=== PATIENT | female | born 1955 | race Caucasian/White ===

== ENCOUNTER 2023-02-06 23:19 | Inpatient (IN) | payer MEDICARE, OTHER ==
[~2023-02-06] VITALS: Ht 167.6 cm; Wt 61.7 kg
--- NOTE | 2023-02-06 23:25 | NUR ---
Pt is noted in bed alert, responsive as she came in C/O chest pain Radiating to Left Neck and Arm x1HR with indigestions. Pt care continue.
[2023-02-06] MEDS ORDERED: ASPIRIN 81 MG TAB.CHEW PO ONE (23:30)
[2023-02-06] MEDS ORDERED: NITROGLYCERIN 0.4 MG/TAB BOTTLE SL ONE (23:30)
[2023-02-06] MEDS ORDERED: ASPIRIN 81 MG TAB.CHEW ONE (23:32)
[2023-02-06] MEDS ORDERED: NITROGLYCERIN 0.4 MG/TAB BOTTLE ONE (23:32)
--- NOTE | 2023-02-06 23:35 | NUR ---
Pt noted off the unit to move her car. Pt care continue as awaits her returns back to the ER.
--- NOTE | 2023-02-06 23:43 | NUR ---
NURSE OUTREACH CASE MANAGER AT PT'S BEDSIDE
--- NOTE | 2023-02-06 23:46 | NUR ---
Pt is noted back on the unit with son by her side as ASA 324PO and Nitrostael 0.4sl given as ordered. Pt care continue.
--- NOTE | 2023-02-07 | NUR ---
EMT AT PT'S BEDSIDE FOR EKG
--- NOTE | 2023-02-07 00:02 | NUR ---
CALLED LAB FOR SPECIMEN PICKUP
[2023-02-07 00:20] LABS: BASOPHILS # (AUTO) 0.1 K/uL (0.0-0.2); EOSINOPHILS % (AUTO) 18.9 % (0.0-6.0); HEMATOCRIT 40 % (33-45); HEMOGLOBIN 13.5 g/dL (11.5-14.8); LYMPHOCYTES # (AUTO) 1.9 K/uL (0.8-4.8); LYMPHOCYTES % (AUTO) 38.7 % (20.0-44.0); MEAN CORPUSCULAR HGB CONC 33 g/dl (31.0-36.0); MEAN CORPUSCULAR VOLUME 97 fL (82-100); MONOCYTES # (AUTO) 0.3 K/uL (0.1-1.30); MONOCYTES % (AUTO) 5.8 % (2.0-12.0); NEUTROPHILS # (AUTO) 1.6 K/uL (1.8-8.9); NEUTROPHILS % (AUTO) 33.6 % (43.0-81.0); PLATELET COUNT (AUTO) 181 K/uL (150-450); RED BLOOD CELL COUNT(AUTO) 4.16 MIL/uL (4.0-5.2); WHITE BLOOD COUNT (AUTO) 4.9 K/uL (4.3-11.0)
[2023-02-07 00:40] LABS: CALCIUM, SERUM 8.9 mg/dL (8.5-10.1); CARBON DIOXIDE 29 mmol/L (21-32); CHLORIDE 107 mmol/L (98-107); CREATININE 1.1 mg/dL (0.6-1.3); GLUCOSE 104 mg/dL (74-106); POTASSIUM 3.9 mmol/L (3.5-5.1); SODIUM SERUM 143 mmol/L (136-145); UREA NITROGEN, BLOOD 15 mg/dL (7-18)
--- NOTE | 2023-02-07 01:12 | NUR ---
PT WALKED TO RESTROOM, NEEDS MET
[2023-02-07] MEDS ORDERED: ACETAMINOPHEN 325 MG TABLET PO PRN (01:30)
[2023-02-07] MEDS ORDERED: MORPHINE SULFATE INJ 2 MG/ML DISP.SYRIN IV PRN (01:30)
[2023-02-07] MEDS ORDERED: MAG HYDROX/AL HYDROX/SIMETH 30 ML UDC PO PRN (01:30)
[2023-02-07] MEDS ORDERED: Z GUARD REMEDY 4 OZ OINT TP PRN (01:30)
[2023-02-07] MEDS ORDERED: ONDANSETRON HCL/PF 4 MG/2 ML VIAL IVP PRN (01:30)
[2023-02-07] MEDS ORDERED: MAGNESIUM HYDROXIDE 30 ML UDC PO PRN (01:30)
[2023-02-07] MEDS ORDERED: ZOLPIDEM TARTRATE 5 MG TABLET PO PRN (01:30)
[2023-02-07] MEDS ORDERED: NITROGLYCERIN 0.4 MG/TAB BOTTLE SL ONE (01:30)
--- NOTE | 2023-02-07 01:45 | NUR ---
tele bed 112.1
--- NOTE | 2023-02-07 01:50 | NUR ---
Pt is resting as another dose off Nitrostal 0.4SL given as ordered . Pt care continue as she is been Admitted to Tele unit , Room 112-1.
--- NOTE | 2023-02-07 02:01 | NUR ---
Remain full code as report is given to the [facility] RN. Pt care continue.
--- NOTE | 2023-02-07 02:15 | NUR ---
Pt is noted off the unit to [facility] Room 112-1.
--- NOTE | 2023-02-07 02:15 | NUR ---
STRUCTURAL ENGINEER ADMISSION NOTE RECEIVED REPORT FROM [facility], PT TRANSFERRED TO [facility] VIA GURNEY, PLACED IN ROOM 112, PT AWAKE, A&OX4, VERBAL, ON RA, O2 SAT 97%, IV ACCESS LAC 20 GA I/C/D, 0 S/S OF INFILTRATION, BODY ASSESSMENT DONE, SKIN INTACT, DRY TO TOUCH, AFEBRILE, C/O LIGHT PAIN IN CHEST, NAD NOTED AT THIS TIME, ALL SAFETY MEASURES IN PLACE, BED IN LOWEST POSITION, CALL LIGHT WITH IN REACH, WILL CONTINUE TO MONITOR
[2023-02-07 04:00] VITALS: BP 110/70
--- NOTE | 2023-02-07 06:15 | NUR ---
URGENT CARE PHYSICIAN closing note Pt is resting in bed, eyes closed, breathing even and unlabored, on RA, afebrile, 0 s/s of pain, A&Ox3, verbal, tele monitor intact, SR on monitor, NAD noted at this time, safety measures noted, pt able to ambulate well, call light with in reach, will continue to monitor
--- NOTE | 2023-02-07 07:59 | NUR ---
CODING SPECIALIST HOME HEALTH NOTE RECEIVED PATIENT IN BED ALERT AND ORIENTED X4 ON TELE MONITOR SR 67 LAC INTACT AND FLUSHED WELL PATIENT ON RA NO SOB PATIENT NO COMPLAIN OF DISCOMFORT CALL LIGHT IS WITHIN REACH SAFETY MEASURE IMPLEMENTED WILL CONTINUE TO MONITOR
[2023-02-07 08:00] VITALS: BP 130/75
[2023-02-07 08:09] LABS: BASOPHILS % (AUTO) 0.6 % (0.0-2.0); EOSINOPHILS % (AUTO) 24.4 % (0.0-6.0); HEMATOCRIT 39 % (33-45); MEAN CORPUSCULAR HGB CONC 33 g/dl (31.0-36.0); MEAN CORPUSCULAR VOLUME 97 fL (82-100); MONOCYTES # (AUTO) 0.3 K/uL (0.1-1.30); NEUTROPHILS # (AUTO) 1.3 K/uL (1.8-8.9); PLATELET COUNT (AUTO) 172 K/uL (150-450); RED BLOOD CELL COUNT(AUTO) 4.04 MIL/uL (4.0-5.2); WHITE BLOOD COUNT (AUTO) 4.7 K/uL (4.3-11.0)
[2023-02-07 08:28] LABS: CALCIUM, SERUM 8.7 mg/dL (8.5-10.1); CREATININE 0.9 mg/dL (0.6-1.3); MAGNESIUM 2.3 mg/dL (1.8-2.4); PHOSPHORUS 4.2 mg/dL (2.5-4.9); POTASSIUM 3.7 mmol/L (3.5-5.1)
[2023-02-07 08:31] LABS: THYROID STIMULATING HORMONE 4.137 uIU/mL (0.358-3.74)
[2023-02-07] MEDS ORDERED: ASPIRIN 81 MG TAB.CHEW PO SCH (09:00)
--- NOTE | 2023-02-07 11:12 | NUR ---
television tube inspector note 2decho done as ordered
--- NOTE | 2023-02-07 11:57 | NUR ---
WINDSHIELD WIPER REPAIRER NOTE THAIS [facility] BLOOD BANK LABORATORY TECHNICIAN AT BEDSIDE AND EXAMINED PATIENT, WILL F\U
[2023-02-07 12:00] VITALS: BP 127/74
[2023-02-07] MEDS ORDERED: ALPR0.25 PO (12:13)
--- NOTE | 2023-02-07 14:22 | NUR ---
telephone appointment clerk note discharge instruction given understood ,hl lt ac removed and dry dressing applied, no bleeding noted. px give nand instructed how to take and possible effects,instructed to f\u with primary care doctor and pricing actuary phone number given , belonging checked by plastic parts designer walked to [facility], patient insisted to drive home self , stated that pricing actuary allowed, offered bus voucher ,but refused and strongly wants go home self, left hospital with stable condition
[2023-02-07 16:27] LABS: EOSINOPHILS % (MANUAL) 28 % (0-4); LYMPHOCYTES % (MANUAL) 37 % (16-48); MONOCYTES % (MANUAL) 3 % (0-11.0); NEUTROPHILS % (MANUAL) 32 (42-76)
== END 2023-02-07 18:38 | disposition home or self-care (01) | DRG 303 ==
LOC: ER 23:21 → TELE1 02-07 01:45
PROVIDERS: ADMIT Nurse Practitioner Acute Care; ATTEND Nurse Practitioner Acute Care
DX: I25.10 Atherosclerotic heart disease of native coronary artery without angina pectoris (principal); I10 Essential (primary) hypertension; Z82.49 Family history of ischemic heart disease and other diseases of the circulatory system; E86.0 Dehydration; Z85.42 Personal history of malignant neoplasm of other parts of uterus; Z86.010 Personal history of colon polyps; E78.5 Hyperlipidemia, unspecified; Z53.09 Procedure and treatment not carried out because of other contraindication; Z96.641 Presence of right artificial hip joint; Z20.822 Contact with and (suspected) exposure to COVID-19; Z90.710 Acquired absence of both cervix and uterus
CPT/HCPCS: 36415; 71045-TC; 80048-TC; 80061-TC; 83735-TC; 84100-TC; 84443-TC; 84484-TC; 85025-TC; 87081-TC; 93307-TC; C9803; G0378